=== PATIENT | male | born 1990 | race Caucasian/White ===

== ENCOUNTER 2024-12-23 12:38 | Outpatient (CLI) | payer OTHER, SELFPAY ==
--- NOTE | ~2024-12-23 | MR_ITS ---
MRI of the brain Clinical History: Fasciculations, transverse myelitis Technique: Axial and sagittal T1-weighted images were acquired. These were followed by axial T2-weigh delfino, diffusion weighted, gradient, and FLAIR images. Following intravenous administration of 15 cc Mu ltiHance gadolinium, T1-weighted fat-sat imaging was performed in the axial and coronal planes. Findings: No abnormal signal seen in the brain parenchyma. No acute infarct, intracranial hemorrhage, or mass lesion. Ventricles and subarachnoid spaces are unremarkable. Orbits are unremarkable. Paranasal sinuses and m astoid air cells are clear. Major intracranial flow voids are intact. Sagittal midline structures are intact. No abnormal postcontrast enhancement identified. IMPRESSION: Normal exam. Reviewed, dictated and finalized at location [facility]. IMPRESSION: Normal exam.
--- NOTE | ~2024-12-23 | MR_ITS ---
MRI of the thoracic spine Clinical History: Transverse myelitis Technique: Axial T2-weighted and gradient images, and sagittal T1-weighted, T2-weighted, and STIR priya ges were acquired. Following intravenous administration of 15 cc MultiHance gadolinium, T1-weighted f at-sat imaging was performed in the axial and sagittal planes. Findings: There is no fracture or subluxation of the thoracic spine. Vertebral bodies maintain normal alignment. No bone marrow signal abnormality seen. There is moderate degenerative disc narrowing at T6-T7 and T7-T8. Remaining disc spaces are relativel y well-preserved. No significant disc bulge or herniation seen at any thoracic level. No spinal canal stenosis or cord compression identified in the thoracic spine. Neural foramina are preserved through out the thoracic spine. No abnormal signal seen in the spinal cord. No epidural mass or collection seen. Paravertebral soft t issues are unremarkable. No abnormal postcontrast enhancement identified. Impression: Moderate degenerative disc narrowing at T6-T7 and T7-T8. No other significant findings. Reviewed, dictated and finalized at [facility]. Impression: Moderate degenerative disc narrowing at T6-T7 and T7-T8. No other significant findings.
--- NOTE | ~2024-12-23 | MR_ITS ---
MRI of the cervical spine Clinical History: Transverse myelitis Technique: Axial T2-weighted and gradient images, and sagittal T1-weighted, T2-weighted, and STIR priya ges were acquired. Following intravenous administration of 15 cc MultiHance gadolinium, T1-weighted f at-sat imaging was performed in the axial and sagittal planes. Findings: There is no fracture or subluxation of the cervical spine. Vertebral bodies maintain normal height and alignment. No bone marrow signal abnormality seen. No disc bulge or herniation seen at any cervical level. No spinal canal stenosis, cord compression, o r neural foraminal narrowing identified in the cervical spine. No abnormal signal seen in the spinal cord. No epidural mass or collection. Paravertebral soft tissue s are unremarkable. No abnormal postcontrast enhancement identified. Impression: Normal exam. Reviewed, dictated and finalized at [facility]. Impression: Normal exam.
== END 2024-12-23 12:39 | disposition home or self-care (01) ==
LOC: MICIMG 12:45
PROVIDERS: PCP Nurse Practitioner Family; Visit Provider Nurse Practitioner Family
DX: M51.34 Other intervertebral disc degeneration, thoracic region (principal); G37.3 Acute transverse myelitis in demyelinating disease of central nervous system
CPT/HCPCS: 70553; 72156; 72157; A9577